=== PATIENT | male | born 1990 | race Caucasian/White ===

== ENCOUNTER 2024-04-08 06:44 | Emergency (ER) | payer BC ==
[~2024-04-08] VITALS: Ht 180.3 cm; Wt 106.0 kg
[2024-04-08 07:04] VITALS: O2SAT 99
[2024-04-08] MEDS ORDERED: KETOROLAC 15MG/ML VIAL IV ONE (07:30)
[2024-04-08] MEDS: KETOROLAC 15MG/ML VIAL IM ONE (08:13)
[2024-04-08] MEDS: DEXAMETHASONE 4MG/ML 1ML VIAL IV ONE (08:14)
[2024-04-08 08:47] VITALS: BP 128/78; PULSE 76; RESP 16; TEMP 98.6
== END 2024-04-08 09:00 | disposition home or self-care (01) ==
LOC: ER 06:44
DX: J02.9 Acute pharyngitis, unspecified (principal)
CPT/HCPCS: 87430; 87070; 96372; 96374; 99284; J1100; J1885; Z7610